=== PATIENT | female | born 1980 | race Caucasian/White ===

== ENCOUNTER 2016-09-15 14:05 | Day surgery (SDC) | payer OTHER ==
[~2016-09-15] VITALS: Ht 149.9 cm; Wt 71.0 kg
--- NOTE | 2016-09-15 07:30 | PCM.HPANE ---
Patient Data Surgeon Admitting Provider: Attending Provider:Peter Contreras MD Primary Care Physician:Nilo Wellington MD Other Provider:[facility] An[facility] Reason for Visit Other Fecal Abnormalitites Ht/WT & BMI Body Mass Index Allergies Coded Allergies: divalproex sodium (Verified Allergy, Unknown, 06/05/13) oxycodone (Verified Allergy, Unknown, 09/13/16) topiramate (Verified Allergy, Unknown, 06/05/13) Diabetes History Hx Diabetes?: No Medications Reported Medications Sumatriptan (Imitrex)100 Mg [id number] Mg PO 09/15/16 Lorazepam (Ativan)2 Mg/1 Ml VialUnknown Dose IJ 09/15/16 Lansoprazole 30 Mg Capsule.dr60 Mg PO BID #30 CAPSULE Ref 0 09/15/16 Gabapentin 100 Mg [id number] Mg PO BID 30 Days Ref 0 09/15/16 Duloxetine 30 Mg Capsule.dr30 Mg PO DAILY Ref 0 09/15/16 Fluoxetine 40 Mg Gjhggvj80 Mg PO DAILY Ref 0 09/15/16 Discontinued Reported Medications Divalproex ER (Depakote ER)500 Mg Ppdncr157 Mg PO TID Ref 0 *DAILY USE ONLY* Swallowed whole without chewing to avoid local irritation of the mouth and throat. 09/13/16 Aspirin/Caffeine (Metastorm Aspirin Powder Pouches)1 Each Powd.pack1 Each PO DIRECTED PRN For Pain 06/05/13 Lansoprazole-Expunged Drug, Do Not Renew! 30 Mg Capsule.dr30 Mg PO BIDAC 06/05/13 Paroxetine-Expunged Drug, Do Not Renew! (Paxil-Expunged Drug, Do Not Renew!)40 Mg Htyabp15 Mg PO DAILY 06/05/13 Zolpidem-Expunged Drug, Do Not Renew! 10 Mg Zwooxm65 Mg PO HS For Insomnia 06/05/13 History History of ENT Problems?: No Hx of Heart Problems?: No Hx of Respiratory Problem?: No Hx Neurologic Problems?: Yes Neurological History: Positive for:: Headaches Hx of GI Problems?: Yes Gastrointestinal History: Positive for:: Gastroesphageal Reflux Heartburn Hx of Problems?: Yes Genitourinary History: Positive for:: Kidney Stones Female Hx: Denies:: Currently Skin History: Denies:: History Skin Disorders? Pressure Ulcers Hx Musculoskeletal Problems?: No Hx of Psycho/Social Problems?: Yes Psycho Social History: Positive for:: Anxiety Hx Depression Denies:: Bipolar Disorder Hx Surgeries?: Yes (hyster, exp lap, foot) Hx Any Other Health Problems?: No Other History: Denies:: Cancer Endocrine Disease Thyroid Disease History Blood Transfusions: Denies:: Blood Transfusions Hx Diabetes: No Hx Alcohol Use: No Stop/Bang Risk Assessment Category Category 1A: Patient has history of documented sleep apnea, and HAS NOT received any narcotic, sedative or anesthesia administration during this stay. Category 1B: Patient has history of documented sleep apnea, and HAS received any narcotic , sedative or anesthesia administration during this stay Category 2: Patient has SUSPECTED Obstructive Sleep Apnea, and HAS received any narcotic , sedative or anesthesia administration during this stay. Category 3: Patient has SUSPECTED Obstructive Sleep Apnea and HAS NOT received narcotic, sedative or anesthesia administration during this stay. Category 4: Outpatient in Procedural Areas with known sleep apnea or who screen positive for High Risk via the STOP/BANG questionnaire. Exam Exam General Appearance: Alert, Oriented X3, Cooperative, No Acute Distress HEENT/AIRWAY: MP 2 Lungs: Clear to Auscultation, Normal Air Movement Heart: Exam Unremarkable, Regular Rate/Rhythm, No Murmurs/Rubs/Gallops Plan Impression Patient chart reviewed, patient interviewed and anesthestic plan with risks, benefits, and alternatives discussed, and informed consent obtained. NPO Status: 06/10 at 1900 ASA Physical Status: ASA2 Mod Systemic Disease Anesthetic Plan: MAC Bene/Risks/Altern/Consents: Yes HP Complete Prior to Induction: Yes Checo Kelley MD Sep 15, 2016 07:30
[~2016-09-15 14:05] MED LIST: AMB10 PO; ASPI1POW6 PO; DEP500ER PO; LANS30CA PO; Lactated Ringer's 1,000 ML IV ONE; PRX40T PO
[2016-09-15] MEDS ORDERED: fentaNYL-PF 50 mCg/mL 2 mL Inj ONE (14:06)
[2016-09-15] MEDS ORDERED: Propofol 10,000 mCg/mL 20 mL Inj ONE (14:06)
[2016-09-15] MEDS ORDERED: FLUO40CA PO (14:25)
[2016-09-15] MEDS ORDERED: DULO30CA50 PO (14:25)
[2016-09-15] MEDS ORDERED: GABA-500 PO (14:25)
[2016-09-15] MEDS ORDERED: LANS30CA PO (14:26)
[2016-09-15] MEDS ORDERED: LORA2VIA28 IJ (14:26)
[2016-09-15] MEDS ORDERED: IMI100 PO (14:27)
[2016-09-15 14:28] VITALS: BP 113/75; PULSE 91; RESP 16; O2SAT 97
--- NOTE | 2016-09-15 15:00 | PCM.ENDEGD ---
EGD Date of Service: Sep 15, 2016 Physician Peter Contreras MD Pre Procedure Diagnosis: Reflux Post Procedure Dx & Findings: Esophageal ulcers and duodenal erosions Procedure Esophagogastroduodenoscopy PROCEDURE IN DETAIL: The patient was placed in left lateral decubitus position. Bite block was placed. Scope lubricated, placed in posterior pharynx, passed through the cricopharyngeus and esophagus, slowly advanced the entire length of the gastric pouch, pylorus was identified, scope passed through the pylorus and descending portion of duodenum, withdrawn in the antrum, retroflexed upon itself for view of fundus and cardia. Scope was then withdrawn through the oropharynx. Esophagus appeared normal until around 20 cm from the incisors. At that point we saw linear superficial erosions extending into the GE junction which was at 36 cm. Sampling biopsies are obtained. Stomach was entered. Stomach showed normal rugae folds without any ulcers mass erosion. Mucosa appeared normal. Cardia fundus body antrum and pylorus were visualized. Retroflexion was done. Stomach was easily inflatable and deflated air. Scope further advanced to the duodenum distal. The bulb revealed few superficial < 1 mm erosion with surrounding redness which was biopsied. Otherwise rest of the duodenum showed normal villous structures with normal appearing folds. Impression Significant esophageal ulcerations status post biopsy Duodenal erosions Recommendation Await biopsy results Aggressive acid suppression. Avoid NSAIDs Presedation Assessment Risks and Benefits Informed consent was obtained from the patient after all risks and benefits including but not limited to drug reaction, infection, pain, bleeding, perforation, as well as alternatives were discussed. Patient monitoring Continuous pulse oximetry, cardiac monitoring, blood pressure monitoring, IV access, and oxygen at 2L per nasal cannula. Complications There were no periprocedural complications identified. Post Procedure Plan Post Procedure Recommendations 1. Restrict activities today. 2. Resume normal activities in the morning. 3. Resume medications. 4. GERD behavioral modification: - Avoid fatty, acidic, spicy, large meals - Do not lie down after meals - Do not eat or drink anything for at least 2 1/2 hours before going to bed at night - Discontinue tobacco and alcohol - Decrease or avoid caffeine - Avoid chocolate and mints - Decrease weight - Avoid aspirin and non steroidal anti-inflammatory agents (NSAID) such as Aleve, Advil, Mobic, Naproxen, Ibuprofen, etc 5. Add proton pump inhibitor. Take 30 minutes before 1st meal of the day. 6. Patient informed of normal post procedure side effects as bloating, drowsiness, blood streaking in the stool 7. If gastric biopsy reveal H.pylori, continue with appropriate treatment 8. If small bowel biopsy reveals celiac, continue with appropriate treatment 9. Please don't hesitate to call me with any questions Peter Contreras MD Sep 15, 2016 15:00
--- NOTE | 2016-09-15 15:20 | PCM.ENDCOL ---
Colonoscopy Date of Service: Sep 15, 2016 Physician Peter Contreras MD Pre Procedure Diagnosis: Blood in the stools Post Procedure Dx & Findings: Hemorrhoids diverticuli Procedure Colonoscopy Prep adequate Withdrawal 10 minutes PROCEDURE IN DETAIL: After unremarkable rectal examination Olympus video colonoscope was inserted patient's anal canal was advanced to cecum. Landmarks are identified including the ileocecal valve and the appendiceal orifice. Scope was withdrawn systematically. Patient had multiple diverticuli medium size from the sigmoid to the ascending colon. Diverticula were mostly in the sigmoid colon however isolated scattering of diverticula noted up to the ascending colon. In the rectum retroflexion was done which showed hemorrhoids. Anal canal was inspected carefully on the way out and hemorrhoids noted. The mucosa of the cecum, ascending, transverse, descending, sigmoid, rectal mucosa lined with whitish, pink, smooth, glistening, normal-appearing mucosa, normal fine branching, underlying vascularity, normal haustra. The patient tolerated procedure and was transported to observation area. Impression Diverticuli Hemorrhoids Recommendation Repeat colonoscopy at 49 years old if there is family history of colon cancer or polyp. Diverticular diet Presedation Assessment Risks and Benefits Informed consent was obtained from the patient after all risks and benefits including but not limited to drug reaction, infection, pain, bleeding, perforation, as well as alternatives were discussed. Patient monitoring Continuous pulse oximetry, cardiac monitoring, blood pressure monitoring, IV access, and oxygen at 2L per nasal cannula. Complications There were no periprocedural complications identified. Post Procedure Plan Post Procedure Recommendations 1. Restrict activities today. 2. Resume normal activities in the morning. 3. Resume medications. 4. Patient informed of normal post procedure side effects as bloating, drowsiness, blood streaking in the stool. 5. average risk CRCS. If colon polyps come back as: -Hyperplastic- can repeat colonoscopy in 10 years -Tubular adenoma- repeat colonoscopy in 5 years -Tubulovillous/villous adenoma- repeat colonoscopy in 3 years -If any dysplasia- return to clinic as soon as possible 6. Please don't hesitate to call me with any questions. Peter Contreras MD Sep 15, 2016 15:20
[2016-09-15] MEDS ORDERED: Lactated Ringer's 1,000 ML IV SCH (15:21)
--- NOTE | 2016-09-15 15:21 | PCM.ANEP1 ---
Post Anesthesia Phase 1 PACU Phase 1 Assessment Date of Service: Sep 15, 2016 Vital Signs Vital Signs Date Time Temp Pulse Resp B/P Pulse Ox O2 Delivery O2 Flow Rate FiO2 09/15/16 14:28 36.5 91 16 113/75 97 Room Air Anesthetic Administered: MAC Level of Alertness: Awake, talking SIMEON's with Equal Strength: Yes Pain: No Nausea or Vomiting: No Oxygen Delivery: Nasal Cannula Lungs: Clear to Auscultation, Normal Air Movement Checo Kelley MD Sep 15, 2016 15:21
[2016-09-15 15:22] VITALS: BP 111/74; PULSE 86; RESP 10; O2SAT 94
--- NOTE | 2016-09-15 15:22 | PCM.ANEP2 ---
Post Anesthesia Evaluation ASA/CMS Post Anesthesia VS in Patient's Normal Range?: Yes Resp Stable; Airway Patent?: Yes CV Function & Hydration Stable: Yes Mental Status Recovered?: Yes Pain control Satisfactory?: Yes N/V Control Satisfactory?: Yes Checo Kelley MD Sep 15, 2016 15:22
[2016-09-15] MEDS ORDERED: Ondansetron 2 mg/mL 2 mL Inj IVPUSH PRN (15:25)
[2016-09-15] MEDS ORDERED: MetoCLOpramide 5 mg/mL 2 mL Inj IVPUSH PRN (15:25)
[2016-09-15 15:38] VITALS: BP 110/70; PULSE 77; RESP 10; O2SAT 95
--- NOTE | 2016-09-19 15:24 | PATH ---
SURGICAL PATHOLOGY Attending Physician:Peter Contreras M.D. CASE STATUS: Signed Out PATIENT NAME: REJI JULIAN PID: [id number] : 1980 DATE COLLECTED:09/15/2016 00:00 SPECIMEN: 1: Duodenum, Biopsy 2: Esophagus, Biopsy CLINICAL HISTORY: 1).DUODENAL BIOPSY 2).DISTAL ESOPHAGUS BIOPSY FINAL DIAGNOSIS: 1.DUODENAL BIOPSY: DUODENAL MUCOSA WITH GASTRIC SURFACE CELL METAPLASIA AND PATCHY ACTIVE INFLAMMATION, CONSISTENT WITH PEPTIC DUODENITIS. NEGATIVE FOR DYSPLASIA AND MALIGNANCY. 2.DISTAL ESOPHAGUS BIOPSY: SQUAMOCOLUMNAR MUCOSA WITH EROSION AND CHRONIC ACTIVE INFLAMMATION. NEGATIVE FOR INTESTINAL/PECK' S METAPLASIA. NEGATIVE FOR DYSPLASIA AND MALIGNANCY. ICD10 CODE K29.80 K20.9 GROSS DESCRIPTION: The specimen is received in two formalin filled containers labeled with the patient's name. 1). The specimen is sublabeled "duodenal" and consists of a 0.4 x 0.2 x 0.2 CM portion of tissue which is entirely submitted in cassette 1A. 2). The specimen is sublabeled "distal esophagus" and consists of 2 portions of tissue which aggregate to 0.3 x 0.3 x 0.2 CM. The specimen is entirely submitted in cassette 2A. 09/16/2016 [facility] MICRO DESCRIPTION: See diagnosis. ICD-9 CODES: CPT CODES: 1: 27936 2: 78980 Electronically Signed Out Tory Mullins MD [facility], [place] [address] Technical component performed at [facility], [place], [address] [place] [address] [address], [place], [address]
== END 2016-09-15 23:59 | disposition home or self-care (01) ==
LOC: END 14:05
PROVIDERS: ATTEND Internal Medicine
DX: K62.5 Hemorrhage of anus and rectum (principal); K57.30 Diverticulosis of large intestine without perforation or abscess without bleeding; K64.9 Unspecified hemorrhoids; K21.9 Gastro-esophageal reflux disease without esophagitis; K29.80 Duodenitis without bleeding; K20.9 Esophagitis, unspecified; F41.8 Other specified anxiety disorders; Z79.82 Long term (current) use of aspirin
CPT/HCPCS: 43239; 45378; J2250; J3010; J7120